=== PATIENT | male | born 1990 | race Caucasian/White ===

== ENCOUNTER 2024-12-18 09:11 | Emergency (ER) | payer OTHER, BC ==
[~2024-12-18] VITALS: Ht 172.7 cm; Wt 95.0 kg
[2024-12-18 09:22] VITALS: TEMP 36.7; O2SAT 99
[2024-12-18] MEDS: ACETAMINOPHEN 325MG TABLET PO ONE (09:39)
[2024-12-18 11:18] VITALS: BP 122/65; PULSE 61; RESP 18; O2SAT 100
== END 2024-12-18 11:19 | disposition home or self-care (01) ==
LOC: ER 09:11
DX: S09.90XA Unspecified injury of head, initial encounter (principal); E11.9 Type 2 diabetes mellitus without complications; E78.00 Pure hypercholesterolemia, unspecified; I10 Essential (primary) hypertension; V43.52XA Car driver injured in collision with other type car in traffic accident, initial encounter; Y93.89 Activity, other specified; Y92.410 Unspecified street and highway as the place of occurrence of the external cause; Y99.8 Other external cause status
CPT/HCPCS: 73030; 99284